=== PATIENT | male | born 1980 | race Two or more races ===

== ENCOUNTER 2023-09-02 11:15 | Emergency (ER) | payer BC, OTHER ==
[~2023-09-02] VITALS: Ht 180.3 cm; Wt 95.0 kg
[2023-09-02 14:58] VITALS: BP 119/75; PULSE 100; TEMP 98.2
[2023-09-02] MEDS ORDERED: PROMETHAZINE-DM 5 ML ORAL SYRUP PO ONE (15:30)
[2023-09-02] MEDS ORDERED: PSEUDOEPHEDRINE HCL 30 MG TAB PO ONE (15:30)
[2023-09-02] MEDS ORDERED: ALBUTEROL SULF 2.5 MG/0.5ML(0.5%) NEB SOLN NEB ONE (15:30)
[2023-09-02] MEDS ORDERED: IPRATROPIUM BROM 0.5 MG/2.5ML INH SOL NEB ONE (15:30)
[2023-09-02] MEDS ORDERED: DexAMETHasone SOD PHOS 10MG/1ML VIAL INJ IM ONE (15:30)
[2023-09-02] MEDS ORDERED: ALBUTEROL MEDNEB 2.5 mg/3ml NEB ONE (15:35)
[2023-09-02 15:37] VITALS: RESP 16; O2SAT 95
[2023-09-02] MEDS ORDERED: PROM1SOL4 PO (16:01)
[2023-09-02] MEDS ORDERED: ALBU108A5 IN (16:01)
[2023-09-02] MEDS ORDERED: PSEU120T2 PO (16:01)
[2023-09-02] MEDS ORDERED: PRED20TA2 PO (16:01)
== END 2023-09-02 16:38 | disposition home or self-care (01) ==
LOC: ER 11:15
DX: J40 Bronchitis, not specified as acute or chronic (principal); J32.0 Chronic maxillary sinusitis
CPT/HCPCS: 94640; 96372; 99283; J1100; J7644